=== PATIENT | female | born 1955 ===

== ENCOUNTER 2016-11-29 09:30 | Outpatient (CLI) | payer OTHER ==
--- NOTE | 2016-11-29 11:10 | Mammography Report ---
BONE DENSITY STUDY: DEFINITIONS: BMD = Bone Mineral Density T-score = BMD related to mean peak bone mass of young adult (mean expressed in Standard Deviation) Z-score = Age matched BMD expressed in SD World Health Organization (WHO) Diagnostic Criteria Normal T-score > -1 SD Osteopenia T-score between -1 and -2.4 SD Osteoporosis T-score -2.5 SD or below FINDINGS: The average L1-L4 BMD is 1.033 with a T-value score of -0.1. The average left hip BMD is 0.986 with a T-value score of 0.4. The femoral neck BMD is 0.709 with a T-value score of -1.3. IMPRESSION: The patient's T-score is diagnostic for normal bone density and low relative risk for fracture. RECOMMENDATION: Follow-up with referring physician. NOTE: BMD is not the only risk factor for fracture; also consider factors such as the patient's age, risk of falling, previous osteoporotic fracture, family history of osteoporotic fractures, current smoker, and low body weight. Kendrick's triangle is a region of interest in femur, predominantly of trabecular bone. It is not a true anatomic site, and [facility] does not recommend its use clinically.
== END 2016-11-29 09:31 | disposition home or self-care (01) ==
LOC: SPVWC 09:30
PROVIDERS: ATTEND Family Medicine
DX: Z13.820 Encounter for screening for osteoporosis (principal); Z87.310 Personal history of (healed) osteoporosis fracture; F17.200 Nicotine dependence, unspecified, uncomplicated
CPT/HCPCS: 77080